=== PATIENT | male | born 1960 | race Two or more races ===

== ENCOUNTER → 2021-02-09 | Outpatient (REF) | payer MEDICAID ==
[2021-02-09 18:47] LABS: MALB URINE SIEMENS 37.8 MG/L; MAU/CREAT RATIO 17.9 MCG/MG (0.0-30.0)
== END ==
LOC: M LAB REF 17:17
PROVIDERS: ATTEND Nurse Practitioner Family
DX: E10.65 Type 1 diabetes mellitus with hyperglycemia (principal)

== ENCOUNTER → 2022-06-08 | Outpatient (POV) | payer OTHER ==
[~2022-06-08] VITALS: Ht 165.1 cm; Wt 82.7 kg
[2022-06-08 10:45] VITALS: BP 174/95
== END ==
LOC: M IRPOV 10:33
PROVIDERS: ATTEND Radiology Diagnostic Radiology
DX: N20.0 Calculus of kidney (principal); E11.9 Type 2 diabetes mellitus without complications; I10 Essential (primary) hypertension; Z87.442 Personal history of urinary calculi; Z87.891 Personal history of nicotine dependence; Z88.8 Allergy status to other drugs, medicaments and biological substances

== ENCOUNTER → 2022-07-30 | Outpatient (CLI) | payer OTHER ==
[2022-07-30 12:30] LABS: BLOOD UREA NITROGEN 9 MG/DL (9-23); CALCIUM LEVEL 8.6 MG/DL (8.5-10.1); CARBON DIOXIDE LEVEL 25 MMOL/L (20-31); CHLORIDE LEVEL 107 MMOL/L (98-107); CREATININE FOR GFR 0.82 MG/DL (0.70-1.30); GLOMERULAR FILTRATION RATE > 60.0 (>56); GLUCOSE, FASTING 191 MG/DL (60-100); POTASSIUM SERUM 3.9 MMOL/L (3.5-5.1); SODIUM LEVEL 139 MMOL/L (136-145)
== END ==
LOC: M RAD 11:22
PROVIDERS: ATTEND Radiology Diagnostic Radiology
DX: K52.9 Noninfective gastroenteritis and colitis, unspecified (principal); D17.5 Benign lipomatous neoplasm of intra-abdominal organs; K76.0 Fatty (change of) liver, not elsewhere classified; N28.1 Cyst of kidney, acquired; R93.2 Abnormal findings on diagnostic imaging of liver and biliary tract; N20.0 Calculus of kidney; I25.10 Atherosclerotic heart disease of native coronary artery without angina pectoris

== ENCOUNTER 2022-09-03 09:48 | Day surgery (SDC) | payer OTHER ==
[~2022-09-03] VITALS: Ht 165.1 cm; Wt 85.7 kg
[~2022-09-03 09:48] MED LIST: ADME100I2 SQ; ERGO500029 PO; FLUO1OPD OS; LISI10TA24 PO; MECL-86 PO; OMEG10002 PO; PANT40TA29 PO; TIMO0.5S20 OU; ceFAZolin SOD 2 GM in IV 1 EA IV ONE
[2022-09-03] MEDS ORDERED: LR 1,000 ML IV SCH ×2 (10:00→14:50)
[2022-09-03] MEDS ORDERED: propofoL 200 MG/20 ML VIAL As Ordered ONE (11:45)
[2022-09-03] MEDS ORDERED: MIDAZOLAM INJ 2MG/2ML VIAL As Ordered ONE (11:46)
[2022-09-03] MEDS ORDERED: LIDOCAINE 2% 100MG/5ML SDV (FOR ANES.) As Ordered ONE (11:46)
[2022-09-03] MEDS ORDERED: ONDANSETRON 4MG 2ML VIAL As Ordered ONE (11:47)
[2022-09-03] MEDS ORDERED: ROCURONIUM BROMIDE 50MG/5ML VIAL As Ordered ONE (11:48)
[2022-09-03] MEDS ORDERED: SUGAMMADEX SODIUM 500 MG/5 ML VIAL (BRIDION) As Ordered ONE (11:49)
[2022-09-03] MEDS ORDERED: ESMOLOL INJ 100MG/10ML VIAL As Ordered ONE (12:51)
[2022-09-03] MEDS ORDERED: ACETAMINOPHEN 1000MG 100ML IV BAG As Ordered ONE (13:01)
[2022-09-03] MEDS ORDERED: HYDROmorphone HCL 2MG/ML 1ML VIAL As Ordered ONE (13:05)
[2022-09-03] MEDS ORDERED: diphenhydrAMINE 50MG/ML VIAL As Ordered ONE (13:08)
[2022-09-03] MEDS ORDERED: ISOVUE-300 61% 100ML VIAL As Ordered ONE (13:38)
[2022-09-03] MEDS ORDERED: oxyCODONE 5MG TAB PO PRN (14:50)
[2022-09-03] MEDS ORDERED: ONDANSETRON 4MG 2ML VIAL IV PRN (14:50)
[2022-09-03] MEDS ORDERED: HYDROMORPHONE HCL 0.5 MG/ 0.5 ML SYRINGE IV PRN (14:50)
[2022-09-03] MEDS ORDERED: OXYC1TAB23 PO (15:16)
[2022-09-03] MEDS ORDERED: FLOM0.4C39 PO (15:16)
[2022-09-03 15:54] VITALS: BP 161/96
[2022-09-03] MEDS ORDERED: PERCOCET 5MG/325MG TAB PO PRN (16:55)
[2022-09-10 01:07] LABS: Ca Ox Monohydrate 100 % (.); Size 5x4 mm (.)
== END 2022-09-03 16:05 | disposition home or self-care (01) ==
LOC: M SDC 09:48
PROVIDERS: ATTEND Urology
DX: N20.0 Calculus of kidney (principal); I10 Essential (primary) hypertension; E11.9 Type 2 diabetes mellitus without complications; K21.9 Gastro-esophageal reflux disease without esophagitis; Z88.8 Allergy status to other drugs, medicaments and biological substances; Z79.899 Other long term (current) drug therapy
CPT/HCPCS: 52356; 74420; 82365; C1769; C1894; C2617; J0131; J0690; J1100; J1170; J1200; J2250; J2405; Q9967

== ENCOUNTER → 2022-09-17 | Outpatient (CLI) | payer OTHER ==
[~2022-09-17] MED LIST changes: +FLOM0.4C39 PO; +OXYC1TAB23 PO; -ceFAZolin SOD 2 GM in IV 1 EA IV ONE
== END ==
LOC: M RAD 07:50
PROVIDERS: ATTEND Urology
DX: N20.0 Calculus of kidney (principal); Z96.0 Presence of urogenital implants

== ENCOUNTER → 2023-03-14 | Outpatient (CLI) | payer OTHER | LOC: M RAD 09:33 | PROVIDERS: ATTEND Urology | DX: N20.0 Calculus of kidney (principal) ==

== ENCOUNTER → 2024-03-26 | Outpatient (CLI) | payer OTHER | LOC: M RAD 08:07 | PROVIDERS: ATTEND Urology | DX: N20.0 Calculus of kidney (principal) ==

== ENCOUNTER 2024-05-18 09:46 | Day surgery (SDC) | payer OTHER ==
[~2024-05-18] VITALS: Ht 165.1 cm; Wt 74.5 kg
[~2024-05-18 09:46] MED LIST changes: +TIMO0.5S20 OS; -TIMO0.5S20 OU
[2024-05-18] MEDS ORDERED: NS (Normal Saline) 0.9% 1,000 ML IV SCH (10:15)
[2024-05-18] MEDS ORDERED: LIDOCAINE 2% 100MG/5ML SDV (FOR ANES.) As Ordered ONE (12:00)
[2024-05-18] MEDS ORDERED: HYDROmorphone HCL 2MG/ML 1ML VIAL As Ordered ONE (12:00)
[2024-05-18] MEDS ORDERED: ACETAMINOPHEN 1000MG/100ML IV BAG As Ordered ONE (12:00)
[2024-05-18] MEDS ORDERED: MIDAZOLAM INJ 2MG/2ML VIAL As Ordered ONE (12:00)
[2024-05-18] MEDS ORDERED: propofoL 200 MG/20 ML VIAL As Ordered ONE (12:00)
[2024-05-18] MEDS ORDERED: ONDANSETRON 4MG 2ML VIAL As Ordered ONE (12:00)
[2024-05-18] MEDS: D5W/0.45% SODIUM CHLORIDE 1,000 ML IV SCH (12:25)
[2024-05-18] MEDS: ceFAZolin SOD 2 GM in IV 1 EA IV ONE (13:40)
[2024-05-18] MEDS: ISOVUE-300 61% 100ML VIAL As Ordered ONE (14:13)
[2024-05-18] MEDS ORDERED: ePHEDrine SULFATE 25 MG/5 ML(5MG/ML) SYRINGE As Ordered ONE (14:17)
[2024-05-18] MEDS ORDERED: oxyCODONE 5MG TAB PO PRN (14:40)
[2024-05-18] MEDS ORDERED: HYDROMORPHONE HCL 0.5 MG/ 0.5 ML SYRINGE IV PRN (14:40)
[2024-05-18] MEDS ORDERED: ONDANSETRON 4MG 2ML VIAL IV PRN (14:40)
[2024-05-18 15:25] VITALS: BP 118/58; TEMP 97.1; O2SAT 97
== END 2024-05-18 15:54 | disposition home or self-care (01) ==
LOC: M SDC 09:46
PROVIDERS: ATTEND Urology
DX: N13.2 Hydronephrosis with renal and ureteral calculous obstruction (principal); I10 Essential (primary) hypertension; E11.9 Type 2 diabetes mellitus without complications; K51.90 Ulcerative colitis, unspecified, without complications; K21.9 Gastro-esophageal reflux disease without esophagitis; Z79.899 Other long term (current) drug therapy; Z79.4 Long term (current) use of insulin; Z90.89 Acquired absence of other organs; Z87.19 Personal history of other diseases of the digestive system
CPT/HCPCS: 52356; 74420; 82365; C2617; J0131; J0690; J1100; J1171; J2250; J2405; Q9967

== ENCOUNTER 2024-11-26 08:16 | Emergency (ER) | payer OTHER ==
[~2024-11-26] VITALS: Ht 165.1 cm; Wt 63.6 kg
[~2024-11-26 08:16] MED LIST changes: -BACTDSTA; -FAMO1TAB11; -METR-265; -SUCR1TAB56
[2024-11-26] MEDS ORDERED: FAMO1TAB11 (08:33)
[2024-11-26] MEDS ORDERED: METR-265 (08:33)
[2024-11-26] MEDS ORDERED: BACTDSTA (08:33)
[2024-11-26] MEDS ORDERED: SUCR1TAB56 (08:33)
[2024-11-26 09:44] LABS: BASO # 0.1 10^3/uL (0.0-0.2); BASO % 0.6 % (0.0-1.0); EOS # 0.1 10^3/uL (0.0-0.5); EOS % 1.3 % (0.0-3.0); LYMPH # 1.6 10^3/uL (1.5-5.0); LYMPH % 18.4 % (24.0-44.0); MONO # 0.3 10^3/uL (0.0-0.8); MONO % 3.6 % (2.0-8.0); NEUTROPHILS # 6.3 10^3/uL (1.5-8.5); NEUTROPHILS % 73.7 % (36.0-66.0); PLATELET COUNT, AUTOMATED 406 10^3/uL (150-450)
[2024-11-26 10:03] LABS: C REACTIVE PROTEIN QUANTITATIV 1.78 MG/DL (<1.0)
[2024-11-26 10:13] LABS: ERYTHROCYTE SEDIMENTATION RATE 51 mm/hr (0-20)
[2024-11-26] MEDS ORDERED: ISOVUE-370 76% 100 ML VIAL As Ordered ONE (10:27)
[2024-11-26 11:23] LABS: MAGNESIUM LEVEL 1.9 MG/DL (1.8-2.4)
[2024-11-26 11:57] LABS: CALCIUM LEVEL 8.9 MG/DL (8.3-10.6); CARBON DIOXIDE LEVEL 24.0 MMOL/L (20-31); CHLORIDE LEVEL 104.0 MMOL/L (98-107); CREATININE FOR GFR 1.54 MG/DL (0.70-1.30); GLOMERULAR FILTRATION RATE 50.7 (>49); POTASSIUM SERUM 3.3 MMOL/L (3.5-5.1); SODIUM LEVEL 139.0 MMOL/L (136-145)
[2024-11-26] MEDS: POTASSIUM CHLORIDE 10MEQ SR TABLET PO ONE (12:26)
[2024-11-26 13:00] VITALS: BP 114/71; TEMP 98.3; O2SAT 98
== END 2024-11-26 13:13 | disposition home or self-care (01) ==
LOC: M ED 08:16
DX: K61.0 Anal abscess (principal); D20.0 Benign neoplasm of soft tissue of retroperitoneum; R00.1 Bradycardia, unspecified; E11.9 Type 2 diabetes mellitus without complications; I10 Essential (primary) hypertension; Z79.4 Long term (current) use of insulin; Z79.2 Long term (current) use of antibiotics; Z79.899 Other long term (current) drug therapy; N20.0 Calculus of kidney
CPT/HCPCS: 36415; 74018; 74177; 80047; 80048; 83605; 83735; 85025; 85652; 86140; 93005; 99284; Q9967

== ENCOUNTER → 2024-11-26 | Outpatient (CLI) | payer OTHER ==
[~2024-11-26] MED LIST changes: +BACTDSTA; +FAMO1TAB11; -FLOM0.4C39 PO; +METR-265; +SUCR1TAB56; +TAMS-18 PO
== END ==
LOC: M RAD 08:04
PROVIDERS: ATTEND Urology
DX: N20.0 Calculus of kidney (principal)